=== PATIENT | female | born 1965 | race American Indian/Alaskan Native ===

== ENCOUNTER 2019-11-07 10:25 | Outpatient (CLI) | payer MEDICARE ==
[2019-11-07 12:32] LABS: Blood Urea Nitrogen 18 mg/dL (7-17)
--- NOTE | 2019-11-07 14:12 | Cat Scan Report ---
CT CHEST WITH CONTRAST INDICATION / CLINICAL INFORMATION: RIB PAIN/PAIN UNDER BREASTS AT BREAST BONE. TECHNIQUE: Axial CT images were obtained through the chest after IV contrast. Sagittal and coronal reformatted i mages. All CT scans at this location are performed using CT dose reduction for ALARA by means of auto mated exposure control. COMPARISON: None available. FINDINGS: HEART: No significant abnormality. THORACIC AORTA: No significant abnormality. MEDIASTINUM and CECY: No significant abnormality. LUNGS: No acute air space or interstitial disease. PLEURA: No significant pleural effusion. No pneumothorax. SKELETAL SYSTEM: The bony structures are intact. No rib abnormality is detected. The sternum is unrem arkable. No suspicious bony lesion or fracture is appreciated. UPPER ABDOMEN: No significant abnormality. ADDITIONAL FINDINGS: Bilateral breast prostheses appear intact. Left IJ Infost-i-Blsz is in good posi tion terminating in the lower SVC. IMPRESSION: Essentially unremarkable CT chest with contrast. No clear explanation for chest pain/rib pain. No acute process or evidence for metastatic disease. Signer Name: Davide Wagner Jr, MD Signed: 11/07/2019 2:08 PM Workstation Name: [id number]
--- NOTE | 2019-11-08 09:35 | Ultrasound Report ---
BILATERAL DIGITAL DIAGNOSTIC MAMMOGRAM WITH CAD 11/07/2019 RIGHT LIMITED BREAST ULTRASOUND INDICATION: History of right breast cancer status post bilateral mastectomy with TRAM and implant. Sh ramirez complains of pain this far lateral and posterior on the right side. TECHNIQUE: Digital bilateral mammographic imaging was performed. Limited ultrasound was performed. T his examination was interpreted with the benefit of Computer-Aided Detection (CAD) analysis. COMPARISON: No comparison imaging. FINDINGS: Breast Density: The breasts are almost entirely fatty. MAMMOGRAPHIC FINDINGS: There is no evidence of dominant mass, suspicious calcifications or architectu ral distortion in either breast. Bilateral implants in place. ULTRASOUND FINDINGS: Targeted ultrasound evaluation was performed of the area of interest. Ultrasou nd of the right breast was performed from 10:00 to 12:00 and the axilla. No mass or cyst or fluid col lection. IMPRESSION: No mammographic evidence of malignancy. Negative limited right breast and right axillary ultrasound. No explanation for pain. Follow up recommendation: Routine yearly BI-RADS Category 2: Benign. A "normal" or negative report should not discourage follow up or biopsy of a clinically significant f inding. A written summary of these findings will be mailed to the patient. The patient will be entered into a mammography reporting system which will generate a reminder letter for the patient's next appointmen t at the appropriate interval. According to the [employer], yearly mammograms are recommended starting at age 40 and continuing as long as a woman is in good health. Breast MRI is recommended for women with an lenny roximately 20-25% or greater lifetime risk of breast cancer, including women with a strong family his tory of breast or ovarian cancer and women who have been treated for Hodgkin's disease. Signer Name: Juanjose Fulton MD Signed: 11/08/2019 9:31 AM Workstation Name: [id number]
== END 2019-11-07 10:26 | disposition home or self-care (01) ==
LOC: MAMMO 10:25
PROVIDERS: ATTEND Internal Medicine Hematology & Oncology
DX: Z08 Encounter for follow-up examination after completed treatment for malignant neoplasm (principal); N64.4 Mastodynia; Z90.13 Acquired absence of bilateral breasts and nipples; Z85.3 Personal history of malignant neoplasm of breast
CPT/HCPCS: 36415; 71260; 76642; 77066; 82565; 84520; Q9967

== ENCOUNTER 2020-10-01 09:47 | Outpatient (CLI) | payer MEDICARE ==
[2020-10-01 10:31] LABS: Blood Urea Nitrogen 19 mg/dL (7-17)
--- NOTE | 2020-10-01 11:49 | Cat Scan Report ---
CT neck w con HISTORY: Left neck mass. COMPARISON: None. TECHNIQUE: CT of the neck is performed. All CT scans at this location are performed using CT dose red uction for ALARA by means of automated exposure control. FINDINGS: Skull Base: No significant abnormality. Nasopharynx, oropharynx, hypopharynx: No significant abnormality. No mass identified.. Tonsils: Tonsils appear within normal limits. Airway: Patent and without significant abnormality. Salivary glands: 1.3 cm lesion in the superficial parotid gland on image 23 series 2. No right paroti d gland lesion. The submandibular glands appear within normal limits.. Thyroid:No significant abnormality. Lymphatics: No lymphadenopathy. Vasculature: No significant abnormality. Osseous Structures: No significant abnormality Additional findings: None. IMPRESSION: 1. 1.3 cm lesion in the superficial left parotid gland is nonspecific but could represent a pleomorph ic adenoma. MRI with and without contrast of the neck is recommended to further characterize. Signer Name: Zhen Mccullough MD Signed: 10/01/2020 11:44 AM Workstation Name: [id number]
== END 2020-10-01 09:48 | disposition home or self-care (01) ==
LOC: CT 09:47
PROVIDERS: ATTEND Internal Medicine Hematology & Oncology
DX: C50.411 Malignant neoplasm of upper-outer quadrant of right female breast (principal); D11.0 Benign neoplasm of parotid gland
CPT/HCPCS: 36415; 70491; 82565; 84520; Q9967

== ENCOUNTER 2020-11-25 11:41 | Outpatient (CLI) | payer MEDICARE ==
--- NOTE | 2020-11-27 11:19 | Magnetic Resonance Report ---
NECK MRI HISTORY: Left neck mass. Follow-up CT. FINDINGS: Unenhanced and enhanced MR images of the soft tissues of the neck were obtained and compare d to a CT scan from 10/01/2020. Again seen is the 1.3 cm soft tissue mass in the posterior aspect of t he parotid gland. This lesion is hypointense on T1-weighted images and hyperintense on T2-weighted im ages. Its margins are irregular. Postcontrast images demonstrate diffuse homogeneous contrast enhancement. No other abnormal parotid lesions are present. The right parotid gland is unremarkable. Other soft tissue structures are also unremarkable. There is no evidence of abnormal cervical adenopathy. IMPRESSION: Left parotid lesion as described above. The appearance suggests a parotid neoplasm. Dislo cation would be a amenable to image guided biopsy if necessary. Signer Name: Luis Black MD Signed: 11/27/2020 11:14 AM Workstation Name: [id number]
== END 2020-11-25 11:42 | disposition home or self-care (01) ==
LOC: MRI 11:41
PROVIDERS: ATTEND Internal Medicine Hematology & Oncology
DX: D11.0 Benign neoplasm of parotid gland (principal); C50.411 Malignant neoplasm of upper-outer quadrant of right female breast
CPT/HCPCS: 70543; A9575

== ENCOUNTER 2020-12-05 10:58 | Outpatient (CLI) | payer MEDICARE ==
--- NOTE | 2020-12-05 12:14 | Mammography Report ---
DIGITAL DIAGNOSTIC MAMMOGRAM WITH CAD , 12/05/2020 CLINICAL INFORMATION / INDICATION: Patient has history of bilateral mastectomy with TRAM flap and olamide ateral implant placement due to prior history of right breast cancer. TECHNIQUE: Digital bilateral mammographic imaging was performed. This examination was interpreted with the benefit of Computer-aided Detection analysis. COMPARISON: 11/07/2019 FINDINGS: Breast Density: The breasts are almost entirely fatty. No dominant mass, suspicious calcifications or architectural distortion in either reconstructed breas t. Bilateral silicone retropectoral breast implants are present. Left-sided chemotherapy port is visible . Overall, no interval change. IMPRESSION: No mammographic evidence of malignancy. Follow up recommendation: Clinical exam. BI-RADS Category 2: Benign. A "normal" or negative report should not discourage follow up or biopsy of a clinically significant f inding. A written summary of these findings will be mailed to the patient. The patient will be entered into a mammography reporting system which will generate a reminder letter for the patient's next appointmen t at the appropriate interval. According to the [employer], yearly mammograms are recommended starting at age 40 and continuing as long as a woman is in good health. Breast MRI is recommended for women with an lenny roximately 20-25% or greater lifetime risk of breast cancer, including women with a strong family his tory of breast or ovarian cancer and women who have been treated for Hodgkin's disease. Signer Name: Carmencita He MD Signed: 12/05/2020 12:09 PM Workstation Name: [id number]
== END 2020-12-05 10:59 | disposition home or self-care (01) ==
LOC: MAMMO 10:58
PROVIDERS: ATTEND Internal Medicine Hematology & Oncology
DX: C50.411 Malignant neoplasm of upper-outer quadrant of right female breast (principal)
CPT/HCPCS: 77066

== ENCOUNTER 2021-01-15 08:06 | Day surgery (SDC) | payer MEDICARE ==
[2021-01-15 09:11] LABS: INR 1.12 (0.87-1.13)
[2021-01-15 12:20] VITALS: BP 149/76
--- NOTE | 2021-01-15 13:56 | Short Stay Summary ---
Short Stay Documentation Date of service: 01/15/21 Narrative H&P: hx of breast cancer with new left parotid mass - History Principal diagnosis: left parotid mass Past Medical History: other (breast cancer) - Allergies and Medications Current Medications: Allergies acetaminophen Adverse Reaction (Verified 02/06/15 12:15) Rash Pt states allergy to tylenol/acetaminophen however, she states she takes percocet and lortab at home without any type of reaction. Home Medications Medication Instructions Recorded Confirmed Last Taken Type Cholecalciferol (Vitamin D3) 1,000 unit PO DAILY 09/28/13 01/15/21 01/14/21 History [Vitamin D3] Esomeprazole Magnesium [NexIUM] 40 mg PO QAM 09/28/13 01/15/21 01/14/21 History Ondansetron (Nf) [Zofran TAB] 8 mg PO DAILY PRN 09/28/13 01/15/21 2 Days Ago History ~06/28/17 Spironolactone 25 mg PO DAILY 09/28/13 01/15/21 01/14/21 History carvediloL [Coreg] 12.5 mg PO BID 09/28/13 01/15/21 01/14/21 History Anastrozole (Nf) [Arimidex (Nf)] 1 mg PO DAILY 01/26/16 01/15/21 01/14/21 History Levothyroxine [Synthroid] 112 mcg PO QAM 01/26/16 01/15/21 01/14/21 History Loratadine (Nf) [Claritin (Nf)] 10 mg PO DAILY PRN 01/26/16 01/15/21 01/14/21 History Quinapril HCl 20 mg PO QDAY 01/26/16 01/15/21 01/14/21 History Apixaban [Eliquis] 5 mg PO QDAY 06/30/17 01/15/21 01/12/21 History Sertraline [Zoloft] 125 mg PO QDAY 06/30/17 01/15/21 01/14/21 History Furosemide [Lasix TAB] 40 mg PO BID #60 tablet 07/05/17 01/15/21 01/14/21 Rx Gabapentin 100 mg PO BID #30 capsule 07/05/17 01/15/21 01/14/21 Rx - Physical exam General appearance: no acute distress HEENT: Other (palpable left parotid mass) - Brief post op/procedure progress note Date of procedure: 01/15/21 Pre-op diagnosis: left parotid mass Post-op diagnosis: same Procedure: US FNA left parotid mass Anesthesia: local Findings: 2cm left parotid mass Surgeon: GAYLA SPIVEY Estimated blood loss: none Pathology: list (FNA x 5) Specimen disposition: to lab Condition: stable - Hospital course Hospital course: uneventful - Disposition Condition at discharge: Good Short Stay Discharge Plan Follow up with: MAXINE EDMONDS MD [Primary Care Provider] - 7 Days Forms: Thyroid Biopsy DC Instructions
--- NOTE | 2021-01-15 14:02 | Ultrasound Report ---
ULTRASOUND FINE NEEDLE ASPIRATION HISTORY: Left parotid mass, breast cancer DESCRIPTION OF PROCEDURE: Informed consent was obtained. Sterile technique was utilized. 1% lidocaine for skin anesthesia. Using ultrasound guidance, 5 fine-needle aspirations were obtained from an approximate 2 cm hypoechoi c left parotid mass. 2 of the samples were placed on microscope slides. 3 of the samples were placed in satellite medium per pathology's request. The patient tolerated the procedure without difficulty. IMPRESSION: Successful ultrasound-guided fine-needle aspiration of the 2 cm left parotid mass. Signer Name: Davide Wagner Jr, MD Signed: 01/15/2021 1:58 PM Workstation Name: [id number]
== END 2021-01-15 12:15 | disposition home or self-care (01) ==
LOC: CATHLABREC 08:06 → EDSTATUS 09:00 → CATHLABREC 12:15
PROVIDERS: ATTEND Otolaryngology
DX: K11.8 Other diseases of salivary glands (principal); I11.0 Hypertensive heart disease with heart failure; I50.9 Heart failure, unspecified; F32.9 Major depressive disorder, single episode, unspecified; Z87.01 Personal history of pneumonia (recurrent); Z98.890 Other specified postprocedural states; Z79.899 Other long term (current) drug therapy; Z85.3 Personal history of malignant neoplasm of breast
CPT/HCPCS: 10005; 36415; 85610; 88104; 88112; 88161

== ENCOUNTER 2021-10-17 09:23 | Outpatient (CLI) | payer MEDICARE ==
[2021-10-17 10:01] LABS: Blood Urea Nitrogen 18 mg/dL (7-17)
--- NOTE | 2021-10-17 11:31 | Cat Scan Report ---
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 TECHNIQUE: Contiguous thin cut axial images obtained through the neck both prior to and following IV contrast. S agittal and coronal reconstructions performed by the technologist. All CT scans at this location are performed using CT dose reduction for ALARA by means of automated exposure control. COMPARISON: 10/01/2020 FINDINGS: There is an ill-defined region associated with the posterior, superior portion of the super ficial parotid on the left, extending to the skin surface. This finding corresponds with the location of a lesion described in this region on prior CT of the neck. This area is located inferior and slig htly posterior to the patient's left ear. The posterior margin of this lesion is indistinct from the anterior margin of the adjacent sternocleidomastoid. Scar tissue would be a consideration, although d irect invasion by recurrent disease cannot entirely be excluded. Overall, this region measures approx imately 19 mm transversely by 19 mm AP by 28 mm craniocaudally. The findings do not appear to extend into the deep parotid, nor do they appear to be in proximity to the stylomastoid foramen. MUCOSAL SPACE: [place] tonsils are mildly prominent in size. Otherwise, the nasopharynx, oropharynx and vallecula, oral cavity and floor of mouth, hypopharynx, an d larynx are grossly normal. LYMPH NODES: No significant adenopathy appreciated. SALIVARY GLANDS: Submandibular and visualized sublingual glands are within normal limits. The right parotid gland is unremarkable. THYROID GLAND: Unremarkable. PARANASAL SINUSES: Mild to moderate mucosal thickening in the mastoids. No coalescence of air cells s een. Minimal mucosal thickening seen in the ethmoids. SPINE: No significant abnormality of the cervical spine appreciated. VASCULAR STRUCTURES: Anterior circulation is within normal limits. The left vertebral artery is domin ant when compared with the right. Decreased flow versus occlusion suggested in the proximal and mid r ight vertebral artery. Similar findings seen on prior. ADDITIONAL FINDINGS: Bilateral, moderate temporomandibular joint disease identified. Similar findings seen on prior. Port-A-Cath noted on the left. IMPRESSION: 1. Left parotid findings, as described above. Scar tissue might be consideration, residual or recurre nt disease might be considered as well, given the indistinctness of its margins. Pre and postcontrast MRI of the upper neck may be of benefit to better characterize and further delineate margins of the lesion, given the improved soft tissue resolution by that modality. 2. Decreased or absent flow in portions of the right vertebral artery - MRA of the neck with and with out contrast could be performed, if needed. Signer Name: Chuck Collado MD, III Signed: 10/17/2021 11:27 AM Workstation Name: [id number]
== END 2021-10-17 09:24 | disposition home or self-care (01) ==
LOC: CT 09:23
PROVIDERS: ATTEND Radiology Radiation Oncology
DX: C07 Malignant neoplasm of parotid gland (principal); M26.603 Bilateral temporomandibular joint disorder, unspecified
CPT/HCPCS: 36415; 70492; 82565; 84520; Q9967